=== PATIENT | female | born 1990 | race Caucasian/White ===

== ENCOUNTER 2016-06-25 12:30 | Inpatient (IN) | payer OTHER ==
[~2016-06-25] VITALS: Ht 167.6 cm; Wt 64.0 kg
--- NOTE | 2016-06-25 12:07 | NUR ---
PT TO UNIT FROM ER FOR BACK/ABD PAIN-STARTED LAST NIGHT. RAMIN 09/07/16 29 1 GESTATION. ACCOMPANIED BY SIGNIFICANT OTHER. PT ORIENTED TO UNIT. UA/DOA /CONSENTS OBTAINED. EFM ATTACHED AND MONITORING FOR TWINS. BABY A HR 140 RUQ, BABY B HR 132 LLQ. PAIN OF 3/10 NOTED. PO HYDRATION PROVIDED. SMOKER DAILY. WILL CONTINUE TO MONITOR. CALL LIGHT IN PLACE. NO ADDITIONAL NEEDS AT THIS TIME.
--- NOTE | 2016-06-25 12:14 | NUR ---
PT WEIGHED, TAKEN TO ROOM 253 BY Marco CONRAD, RN AND LOGAN JOHNSON RN, EXTERNAL MONITOR PLACED, CONSENT OBTAINED AND URINE SPECIMAN GIVEN FOR UA AND DOA
[~2016-06-25 12:30] MED LIST: CIPRO500 MG PO; DEP0PROVERA IM; FIORICET PO; LORTAB 5 OR; NO HOME MEDS; ZITHROMAX250 MG OR
[2016-06-25 12:35] LABS: URINE BILIRUBIN - DIPSTICK NEGATIVE (NEGATIVE); URINE BLOOD DIPSTICK NEGATIVE (NEGATIVE); URINE COLOR YELLOW; URINE GLUCOSE - DIPSTICK NEGATIVE (NEGATIVE); URINE KETONE TRACE mg/dL (NEGATIVE); URINE NITRITE - DIPSTICK NEGATIVE (Negative); URINE PROTEIN - DIPSTICK NEGATIVE (NEG-TRACE); URINE SPECIFIC GRAVITY <=1.005; URINE UROBILINOGEN - DIPSTICK 0.2 E.U./dL (0.2)
[2016-06-25 12:36] LABS: URINE LEUK ESTERASE MODERATE (NEGATIVE)
[2016-06-25 12:37] LABS: URINE CLARITY HAZY
[2016-06-25 12:38] LABS: URINE BACTERIA MODERATE hpf; URINE EPITHELIAL CELLS FEW EPI/hpf (0-FEW); URINE WBC 20-50 WBC/hpf (0-5)
[2016-06-25 12:39] LABS: BARBITURATES NEGATIVE (NEGATIVE); COCAINE NEGATIVE (NEGATIVE); METHADONE NEGATIVE (NEGATIVE); OXCYCODONE NEGATIVE (NEGATIVE); TETRAHYDROCANNABIONOL NEGATIVE (NEGATIVE); TRICYLIC ANTIDEPRESSANTS NEGATIVE (NEGATIVE)
[2016-06-25 12:45] VITALS: BP 102/64
--- NOTE | 2016-06-25 12:45 | NUR ---
DOCUMENTATED BABY A IN LABOR INTERVENTION. BABY B HR 130, MODERATE VARIABLITY, ACCELS PRESENT NO DECELS. PT STATES NO NEEDS AT THIS TIME. SIGNIFICANT OTHER REMAINS AT THE BEDSIDE.
[2016-06-25 13:00] VITALS: BP 102/61
--- NOTE | 2016-06-25 13:00 | NUR ---
BABY A CHARTED IN LABOR INTERVENTION SET. BABY B HR 130, MODERATE VARIABLITY, ACCELS NO DECELS PRESENT. TRANSFER OF CARE TO EILEEN GUZMÁN RN.
--- NOTE | 2016-06-25 13:00 | NUR ---
REPORT RECEIVED FROM Debbie JOHNSON RN PT NOTED TO BE ALIYA MODERATELY AND FREQUENTLY. [address] MINAYA AND ORDERS RECEIVED FOR ADMISSION AND PREPARE FOR TRANSFER. SEE EMAR FOR MEDS
--- NOTE | 2016-06-25 13:10 | NUR ---
DR. MINAYA ON THE UNIT AND EVALUATING PT.
--- NOTE | 2016-06-25 13:15 | NUR ---
IV START 20G IN RT WRIST X2 ATTEMPTS, LR BOLUS INFUSING RAPIDLY
--- NOTE | 2016-06-25 13:30 | NUR ---
MAGNESIUM SULFATE BOLUS INITIATED, BP 102/66, 96, 18, 98% +2 REFLEXES BILERATERALL, PT A&OX3 1335 - 106/67, 100,18, 100% 1335 - BETAMETHASONE 12.5MG GIVEN lFT BUTTOCK 1340 - 104/67,98,100% 1345 - 104/67, 102, 100% 1350 - 102/63, 94, 100% 1355 - 102/65, 105, 18, 98%
--- NOTE | 2016-06-25 13:40 | NUR ---
U/S TEAM HERE, MONITOR OFF FOR U/S 1403 MONITOR REAPPLIED
[2016-06-25 13:45] VITALS: BP 102/64; BP 106/66
--- NOTE | 2016-06-25 13:45 | NUR ---
TWIN A IS DOCUMENTED ON LABOR FLOW. TWIN B IN THE NOTES. TWIN B BASELINE 125, CATEGORY I, MODERATE VARIABILITY, VARIABLE DECEL X 1 ONLY AT 1332. PT TILTED TO LEFT WITH NO REPEAT
[2016-06-25] MEDS ORDERED: PRENATA3 PO (13:58)
[2016-06-25] MEDS ORDERED: IRON325 M1 (13:59)
[2016-06-25] MEDS ORDERED: FOLIC ACID1 MG PO (14:00)
[2016-06-25] MEDS ORDERED: ACCUPRIL5 MG PO (14:00)
--- NOTE | 2016-06-25 14:02 | NUR ---
PCNG 5 MILLION UNITS INFUSING
[2016-06-25 14:15] VITALS: BP 101/65
--- NOTE | 2016-06-25 14:15 | NUR ---
TWIN B BASELINE 125 WITH MODERATE VARIABILITY, NO DECEL. MONITOR HAS BEEN OFF FOR U/S
--- NOTE | 2016-06-25 14:30 | NUR ---
RODRIGUEZ PLACED WITH HOURLY URIMETER UNDER STERILE TECHNIQUE AFTER EXPLAINATION TO PT OF INDICATION AND PROCEDURE
[2016-06-25 14:38] LABS: HEMATOCRIT 27.8 % (37.0-47.0); HEMOGLOBIN 9.2 g/dl (12.0-16.0); IMMATURE GRANULOCYTES 1.8 % (0.0-1.0); MEAN CELL VOLUME 98.2 fL CALC (80.0-100.0); MEAN CORPUSCULAR HGB 32.5 pG CALC (26.0-32.0); MEAN CORPUSCULAR HGB CONC 33.1 g/L CALC (32.0-36.0); NEUT# 13.54 thou/uL (2.00-7.15); RED BLOOD COUNT 2.83 mill/uL (4.20-5.60); RED CELL DISTRI WIDTH 14.3 % (11.5-15.5)
--- NOTE | 2016-06-25 14:42 | NUR ---
DR MINAYA AT BS, VE 3-4 CM
[2016-06-25 14:45] VITALS: BP 116/67
--- NOTE | 2016-06-25 14:45 | NUR ---
TWIN B 130 BASELINE WITH MINIMAL VARIABILITY, NO DECELS, CAT II.
[2016-06-25 14:50] LABS: ALBUMIN 3.3 g/dL (3.2-5.0); ALKALINE PHOSPHATASE 253 u/l (38-126); ANION GAP 13 (6-22 (CALC)); BILIRUBIN, TOTAL 0.4 mg/dL (0.0-1.4); BUN 4 mg/dL (7-17); BUN/CREATININE RATIO 8 (12-20 (CALC)); CALCIUM 8.4 mg/dL (8.4-10.2); CARBON DIOXIDE 22 mmol/l (22-30); CHLORIDE 104 mmol/l (95-108); CREATININE 0.5 mg/dL (0.5-1.0); GFR > 60 ML/MIN (>=60 (CALC)); GFR FOR AFR.AMER. > 60 ML/MIN (>=60 (CALC)); GLUCOSE 82 mg/dL (65-105); POTASSIUM 3.8 mmol/l (3.5-5.1); SGOT/AST 18 u/l (14-36); SGPT/ALT 33 u/l (9-52); SODIUM 136 mmol/l (137-146); TOTAL PROTEIN 6.1 g/dL (6.3-8.2)
--- NOTE | 2016-06-25 15:00 | NUR ---
TWIN A 14O, MODERATE VARIABILITY. TWIN B 130, MODERATE VARIABILITY. NO DECELS. TRANSPORT TEAM IN ROUTE
--- NOTE | 2016-06-25 15:03 | NUR ---
AWAITING AIR TRANSPORT TEAM FROM [facility] WITH A 5 MINUTE ETA. PT AND FAMILY AWARE. PT STILL FEELING CONTRACTIONS.
--- NOTE | 2016-06-25 15:05 | NUR ---
[facility]/AEROMED TEAM HERE, REPORT GIVEN TO HEAD CABLE HOOKER OMAR
--- NOTE | 2016-06-25 15:26 | NUR ---
[facility] AIR TRANSPORT TEAM DEPARTED WITH PT ON STRETCHER ESCORTED BY [facility]. DR. MINAYA PRESENT. PT ALERT, WILL FOLLOW IN PRIVATE VEHICLE. TEAM HAS COMPLETE RECORDS COPY
== END 2016-06-25 15:26 | disposition short-term general hospital (02) | DRG 778 ==
LOC: OBOP 12:30 → OB 12:30 → OBOP 12:40 → OB 13:18
DX: O60.03 Preterm labor without delivery, third trimester (principal); O30.003 Twin pregnancy, unspecified number of placenta and unspecified number of amniotic sacs, third trimester; Z3A.29 29 weeks gestation of pregnancy
CPT/HCPCS: J2540